=== PATIENT | female | born 1965 | race Caucasian/White ===

== ENCOUNTER 2017-03-18 07:10 | Outpatient (CLI) | payer OTHER ==
[2017-03-18 12:03] LABS: BASOPHILS % (AUTO) 0.5 %; EOSINOPHILS # (AUTO) 0.2 10^3/uL (0.0-0.7); EOSINOPHILS % (AUTO) 4.3 %; HCT - HEMATOCRIT 40.6 % (37.0-47.0); HGB - HEMOGLOBIN 13.8 g/dL (12.0-16.0); LYMPHOCYTES # (AUTO) 1.1 10^3/uL (1.5-3.5); LYMPHOCYTES % (AUTO) 22.7 %; MEAN CORPUSCULAR HEMOGLOBIN 29.2 pg (27.0-31.0); MEAN CORPUSCULAR HGB CONC 33.9 g/dL (32.0-36.0); MEAN CORPUSCULAR VOLUME 86.1 fL (81.0-99.0); MEAN PLATELET VOLUME 8.2 fL (7.9-10.8); MONOCYTES # (AUTO) 0.3 10^3/uL (0.0-1.0); MONOCYTES % (AUTO) 7.3 %; NEUTROPHILS # (AUTO) 3.1 10^3/uL (1.5-6.6); NEUTROPHILS % (AUTO) 65.2 %; RED BLOOD COUNT 4.72 10^6/uL (4.20-5.40); UNCORRECTED WHITE BLOOD COUNT 4.8 x10^3/uL; WHITE BLOOD COUNT 4.8 x10^3/uL (4.8-10.8)
[2017-03-18 12:42] LABS: ALBUMIN/GLOBULIN RATIO 1.3 (1.0-2.2); BILIRUBIN,TOTAL 0.7 mg/dL (0.2-1.0); BUN - BLOOD UREA NITROGEN 20 mg/dL (6-20); CALCIUM 9.5 mg/dL (8.5-10.3); CARBON DIOXIDE - CO2 29 mmol/L (21-32); CHLORIDE 103 mmol/L (101-111); CHOL/HDL RATIO 5.4 (<4.4); CHOLESTEROL 214 mg/dL; CREATININE 0.9 mg/dL (0.4-1.0); GFR - MDRD 66 (>89); GLUCOSE 111 mg/dL (70-100); HDL CHOLESTEROL 40 mg/dL; LDL/HDL RATIO 3.8 (<4.4); SODIUM 140 mmol/L (135-145); TOTAL PROTEIN 7.5 g/dL (6.7-8.2); TRIGLYCERIDES 122 mg/dL; VLDL CHOLESTEROL 24 mg/dL
== END 2017-03-18 07:11 | disposition home or self-care (01) ==
LOC: LAB.F 07:10
PROVIDERS: ATTEND Physician Assistant Medical
DX: Z00.00 Encounter for general adult medical examination without abnormal findings (principal)
CPT/HCPCS: 36415; 80053; 80061; 84443; 85025

== ENCOUNTER 2017-05-12 10:15 | Outpatient (CLI) | payer OTHER ==
--- NOTE | 2017-05-13 16:54 | Mammography Report ---
DIGITAL SCREENING MAMMOGRAM: 05/12/2017 CLINICAL INDICATION: A 51-year-old with history of late childbearing for screening. COMPARISON: Films from [place], [place] dated 02/13/2016, 02/06/2015, 02/03/2014, 11/26/2012, . TECHNIQUE: Routine CC and MLO projections were obtained of the breasts as well as bilateral laterall y exaggerated craniocaudal views. FINDINGS: Parenchymal tissue within both breasts is heterogeneously dense, which may lower the sensi tivity of mammography; however, there are no dominant masses, suspicious microcalcifications, or seco ndary signs of malignancy. In comparison to the previous studies, there are no significant changes. ASSESSMENT: NO MAMMOGRAPHIC EVIDENCE OF MALIGNANCY. NO SIGNIFICANT INTERVAL CHANGES. RECOMMENDATION: Screening mammography is recommended annually. BIRADS category 1 - negative. STANDARD QUALIFYING STATEMENTS 1. This examination was reviewed with the aid of Computed-Aided Detection (CAD). 2. A negative or benign imaging report should not delay biopsy if clinically suspicious findings are present. Consider surgical consultation if warranted. More than 5% of cancers are not identified by i maging. 3. Dense breasts may obscure an underlying neoplasm. JOB #: [id number] EXT JOB #:[id number]
== END 2017-05-12 10:16 | disposition home or self-care (01) ==
LOC: DI 10:15
PROVIDERS: ATTEND Physician Assistant Medical
DX: Z12.31 Encounter for screening mammogram for malignant neoplasm of breast (principal)
CPT/HCPCS: 77067

== ENCOUNTER 2018-05-05 16:03 | Emergency (ER) | payer OTHER ==
[2018-05-05 16:13] VITALS: BP 127/82
--- NOTE | 2018-05-05 16:56 | XRAY Report ---
Procedure Date: 05/05/2018 Accession Number: [id number] / [id number] Procedure: XR - Wrist 4 View LT CPT Code: FULL RESULT: EXAM: LEFT WRIST RADIOGRAPHY EXAM DATE: 05/05/2018 04:34 PM. CLINICAL HISTORY: Ground level fall onto left wrist, swelling and limited range of motion. COMPARISON: None. TECHNIQUE: 4 views. FINDINGS: Bones: Acute comminuted left distal radial fracture, intra-articular, with moderate dorsal angulation and displacement of a dorsal fracture fragment. Adjacent soft tissue swelling. Joints: No subluxation. IMPRESSION: Acute left distal radial fracture as above. RADIA
--- NOTE | 2018-05-05 17:14 | ED Physician Documentation ---
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 L wrist pain R handed no other injury Review of Systems Constitutional: denies: Fever Musculoskeletal: reports: Extremity pain PD PAST MEDICAL HISTORY - Past Medical History Past Medical History: No - Past Surgical History Past Surgical History: No - Present Medications Home Medications: Ambulatory Orders Medication Instructions Recorded Confirmed Ibuprofen [Motrin] 400 mg PO Q6H PRN #20 tablet 05/05/18 - Allergies Allergies/Adverse Reactions: Allergies Allergy/AdvReac Type Severity Reaction Status Date / Time No Known Drug Allergies Allergy Verified 05/05/18 16:13 - Social History Does the pt smoke?: No Smoking Status: Never smoker ETOH Use: Wine, Beer, Liquor Does the pt have substance abuse?: No PD ED PE NORMAL - Vitals Vital signs reviewed: Yes - Cardiac Cardiac: RRR - Respiratory Respiratory: No respiratory distress, Clear bilaterally - Extremities Extremities: Other (L wrist TTP radially and swelling but no gross deformity, and MSV intact) Results - Vitals Vitals: Vital Signs - 24 hr 05/05/18 16:11 Temperature 36.7 C Heart Rate 68 Respiratory 18 Rate Blood Pressure 127/82 H O2 Saturation 100 Oxygen O2 Source Room air - Rads (name of study) wrist Radiology: See rad report (acute L distal radius fx, intrarticular, slight apex volar angulation and slight dorsal displacement) Procedures - Splint (location) sugartong Splint applied by: Tech Type of splint: Fiberglass, Long arm, Sugar tong Other: Patient tolerated well, No complications, Neurovascular intact. No: Sling provided (offered and declined) PD MEDICAL DECISION MAKING - Sepsis Event Vital Signs: Vital Signs - 24 hr 05/05/18 16:11 Temperature 36.7 C Heart Rate 68 Respiratory 18 Rate Blood Pressure 127/82 H O2 Saturation 100 Oxygen O2 Source Room air Departure - Departure Disposition: 01 Home, Self Care Clinical Impression: Wrist fracture, left Qualifiers: Encounter type: initial encounter Fracture type: open Qualified Code(s): S62.102B - Fracture of unspecified carpal bone, left wrist, initial encounter for open fracture Condition: Good Instructions: ED Splint Care Fiberglass, ED Fx Wrist General Follow-Up: [facility] [Provider Group] Prescriptions: Ibuprofen [Motrin] 400 mg PO Q6H PRN #20 tablet PRN Reason: Pain Discharge Date/Time: 05/05/18 17:38
== END 2018-05-05 17:38 | disposition home or self-care (01) ==
LOC: ED 16:03
DX: S52.572B Other intraarticular fracture of lower end of left radius, initial encounter for open fracture type I or II (principal); W01.0XXA Fall on same level from slipping, tripping and stumbling without subsequent striking against object, initial encounter; Y93.H3 Activity, building and construction; Y92.71 Barn as the place of occurrence of the external cause
CPT/HCPCS: 29105; 99283

== ENCOUNTER 2018-05-14 13:58 | Outpatient (CLI) | payer OTHER ==
[2018-05-14 18:00] LABS: CALCIUM 9.4 mg/dL (8.5-10.3); CREATININE 0.9 mg/dL (0.4-1.0)
[2018-05-14 18:13] LABS: BASOPHILS % (AUTO) 0.5 %; EOSINOPHILS # (AUTO) 0.1 10^3/uL (0.0-0.7); EOSINOPHILS % (AUTO) 1.8 %; HGB - HEMOGLOBIN 13.7 g/dL (12.0-16.0); LYMPHOCYTES # (AUTO) 1.2 10^3/uL (1.5-3.5); MEAN CORPUSCULAR HEMOGLOBIN 30.5 pg (27.0-31.0); MEAN CORPUSCULAR HGB CONC 34.5 g/dL (32.0-36.0); MEAN CORPUSCULAR VOLUME 88.6 fL (81.0-99.0); MEAN PLATELET VOLUME 8.1 fL (7.9-10.8); MONOCYTES # (AUTO) 0.3 10^3/uL (0.0-1.0); MONOCYTES % (AUTO) 5.9 %; NEUTROPHILS # (AUTO) 3.9 10^3/uL (1.5-6.6); NEUTROPHILS % (AUTO) 70.8 %; PLT - PLATELET COUNT 266 10^3/uL (130-450); WHITE BLOOD COUNT 5.5 x10^3/uL (4.8-10.8)
== END 2018-05-14 13:59 | disposition home or self-care (01) ==
LOC: LAB.F 13:58
PROVIDERS: ATTEND Orthopaedic Surgery Sports Medicine
DX: Z01.812 Encounter for preprocedural laboratory examination (principal); S52.572A Other intraarticular fracture of lower end of left radius, initial encounter for closed fracture
CPT/HCPCS: 36415; 80048; 85025

== ENCOUNTER 2018-05-18 06:07 | Day surgery (SDC) | payer OTHER ==
[2018-05-18] MEDS ORDERED: ceFAZolin 2 GM/50 ML 2 GM/50 ML BAG IV ONE (06:28)
[2018-05-18] MEDS ORDERED: SCOPOLAMINE PATCH TOP ONE (06:51)
[2018-05-18] MEDS ORDERED: LACTATED RINGERS 1,000 ML IV ONE ×2 (07:06→10:15)
[2018-05-18] MEDS ORDERED: BUPIVACAINE 0.5% PF 30 ML VIAL ONE (07:18)
[2018-05-18] MEDS ORDERED: LIDOCAINE-MPF 2% 5 ML VIAL IM ONE (07:50)
[2018-05-18] MEDS ORDERED: PHENYLEPHRINE 50 MG/5 ML VIAL IV ONE (07:50)
[2018-05-18] MEDS ORDERED: MIDAZOLAM 2 MG/2 ML VIAL IVP ONE (07:50)
[2018-05-18] MEDS ORDERED: DEXAMETHASONE 4 MG/ML VIAL IVP ONE (07:50)
[2018-05-18] MEDS ORDERED: fentaNYL 100 MCG/2 ML VIAL IVP ONE (07:50)
[2018-05-18] MEDS ORDERED: ONDANSETRON 4 MG/2 ML VIAL IVP ONE (07:50)
[2018-05-18] MEDS ORDERED: KETOROLAC 30 MG/ML VIAL IVP ONE (07:50)
[2018-05-18] MEDS ORDERED: PROPOFOL 200 MG/20 ML VIAL IVP ONE (07:50)
[2018-05-18] MEDS ORDERED: BUPIVACAINE 0.5% PF 30 ML VIAL INFIL ONE ×2 (09:30)
[2018-05-18] MEDS ORDERED: ACETAMINOPHEN 1,000 MG/100 ML 100 ML IV ONE (09:57)
[2018-05-18] MEDS: HYDROmorphone 1 MG/ML CARPUJECT ONE ×2 (09:58→10:05)
[2018-05-18] MEDS: fentaNYL 100 MCG/2 ML VIAL ONE ×2 (10:20→10:45)
[2018-05-18] MEDS ORDERED: ONDANSETRON 4 MG/2 ML VIAL ONE (11:46)
[2018-05-18 13:55] VITALS: BP 118/65
--- NOTE | 2018-05-18 17:50 | OPERATIVE REPORT ---
DATE OF SERVICE: 05/18/2018 Physician: David Palomo MD SURGEON: David Palomo MD ELECTRO PLATER: None. ANESTHESIOLOGIST: Rogerio Thao CNA ANESTHESIA TYPE: General anesthesia as well as 10 mL of 0.5% plain Marcaine. FLUIDS: 700 mL lactated Ringer's. PREOPERATIVE ANTIBIOTICS: 2 gram weight-based IV Ancef. COMPRESSION DEVICE: Bilateral calf SCD boots. ESTIMATED BLOOD LOSS: Less than 50 mL. TOURNIQUET TIME: 95 minutes at 250 mmHg. ORTHOPEDIC IMPLANTS 1. Biomet Crosslock DVR plate, left side, regular. 2. Multiple 2.7 mm locking screws. 3. Single nonlocking 2.7 mm screw. INTRAOPERATIVE COMPLICATIONS: None noted. HISTORY OF PRESENT ILLNESS AND INDICATIONS: Patient i is a 52-year-old female who sustained a left intraarticular displaced distal radius fracture approximately 2 weeks ago. She was found to have an intra-articular widening with an ulnar column component and was indicated for operative treatment. Please see previous clinic dictation for further details. We previously reviewed risks, benefits and alternatives of operative and nonoperative treatment. She verbalized previously and again reiterated her wish to proceed with operative treatment for the left wrist. Informed consent was given. DESCRIPTION OF PROCEDURE: On 05/18/2018, patient was identified in the preoperative care unit. She identifies her left wrist as the operative site. This was signed by the operating surgeon. Patient received preoperative weight- based IV Ancef. She was brought to the operating room and placed supine on the operating table. Head, neck and extremities were placed in anatomically comfortable and safe position to avoid peripheral nerve stretch and compression. Patient was administered general anesthesia. Patient's left upper extremity had a well-padded tourniquet placed high on the left arm, but taking care to avoid encumbrance of the axilla. Patient's left upper extremity has splint removed and then the left upper extremity was prepped first, pre- scrubbed and then ultimately with chlorhexidine prepped and draped in the usual sterile fashion. At this point, surgical pause was performed and at this point , Esmarch bandage was used to exsanguinate the limb, and tourniquet was inflated. At this point, local anesthesia was administered around the planned incision site and then an incision was made over the left flexor carpi radialis taking care to go just through the skin and then angling across the distal wrist crease. This spreading dissection was carried out to the anterior aspect of the FCR sheath, which was gently incised and then extended proximally and distally. The FCR was then retracted ulnarly, protecting the median nerve and then the posterior sheath is incised. The soft tissues were brought gently ulnarly, taking care to avoid over exuberant retraction and to protect the median nerve. The pronator quadratus is identified and cleared off to the most distal aspect, taking care to avoid exuberant dissection distally to avoid injury to the wrist joint capsule and then at this point, the pronator quadratus is elevated off the most radial border of the radius directly on bone and then the distal aspect is elevated in 1 layer to preserve the muscle. At this point, the first dorsal extensor compartment was identified. The brachioradialis was identified and gently elevated off of the radial styloid while protecting the adjacent tendinous structures. This decreases deforming force on the distal fragment. At this point, the fracture has developed gently with a [place] elevator and the forearm was pronated to release the fracture. This was copiously irrigated and then reduction maneuver was performed to restore radial height, inclination, and volar tilt. Thumb pressure also helps reduce the dorsal ulnar fragments. The intraarticular split was noted to reduce. At this point, the appropriate size plate is selected and seated on the bone. It was precontoured and fits nicely. K-wires were placed to confirm that the plate is not too far distal and remains extraarticular and particular attention is paid to the DRUJ to avoid any penetration of that joint. Multiple iterations of this and fluoroscopic mini C-arm imaging was performed to confirm appropriate reduction and then the plate is K-wired in place. Ultimately, the oval hole screw was placed with a nonlocking screw. The plate is minimally adjusted and prior to tightening this oval screw, the 2 distal ulnar-sided locking screws are placed to help reduce and maintain reduction of the ulnar column of the distal radius. After this, then the oval hole was tightened to further the reduction. At this point, iterations of alternating fluoroscopy and screw placement is performed to confirm extraarticular screw placement, but also to avoid over exuberant penetration of the second cortex to protect the dorsal structures. The screws were placed. The DRUJ was noted to be clear of any hardware. The radiocarpal joint was noted to be clear of any hardware and all the screws were tightened. At this point, reduction and plate position are noted to be acceptable. At this point, the DRUJ was examined and noted to be stable in pronation and supination, as such additional DRUJ fixation or immobilization not indicated. No other evidence for carpal or intercarpal instability appreciated. At this point, the wound was copiously irrigated and then the pronator quadratus was then repaired distally and around the radial most corner. At this point, repeat copious irrigation was performed and then the skin was closed using layered closure including 0 Vicryl, 2-0 Vicryl, and then interrupted nylon suture. Copious irrigation was performed at every level. At this point, local anesthetic was infused superficially 10 mL around the skin incision. Xeroform dressing was applied after the skin was washed and dried. A 4 x 4 and then a clamshell-type splint short arm was placed in the neutral position. The patient tolerated the procedure well. Instrument and sponge counts were correct. The patient was transferred to the recovery room in stable condition after being extubated and having the LMA removed. There were no intraprocedural complications. The patient will follow standard postoperative left distal radius open reduction internal fixation protocol. She would be nonweightbearing on the left upper extremity. She will keep the splint clean, dry, and intact. She would be in the sling when she is up and about, though may remove the sling when she is at rest to move the elbow and digits. She would ice and elevate as directed. She was given perioperative medications including oxycodone for pain as well as Keflex for 24 hours. She will follow up in 10-14 days or sooner on an as- needed basis should problems, questions or worsening arise. All reviewed with her preoperatively. She previously verbalized understanding and agreement with satisfaction of the plan for postoperative care. ADDITIONAL PROCEDURE: Four views of the left distal radius mini C-arm fluoroscopic image interpretation. PROCEDURAL INDICATIONS: Intraoperative evaluation of distal radius fracture and hardware placement. FINDINGS: Radiographic findings demonstrate left distal radius fracture, intraarticular, with minimal dorsal ulnar column comminution. There is noted to be improved reduction of the joint surface with no gapping appreciated and acceptable hardware placement, which appears to be extraarticular, both of the DRUJ joint as well as the radiocarpal joint. No other definite fracture, dislocation or diastasis appreciated. Occult injury cannot be excluded. RADIOGRAPHIC IMPRESSION: Left distal radius fracture and fixation as above. TD: 05/18/2018 12:05 MTDD
== END 2018-05-18 06:08 | disposition home or self-care (01) ==
LOC: SDS 06:07
PROVIDERS: ATTEND Orthopaedic Surgery Sports Medicine
PROC: 0PSJ04Z Reposition Left Radius with Internal Fixation Device, Open Approach (ICD-10-PCS; principal; 2018-05-18 07:30)
DX: S52.572A Other intraarticular fracture of lower end of left radius, initial encounter for closed fracture (principal)
CPT/HCPCS: 25608; C1713; J0131; J0690; J1170; J3490; J7120

== ENCOUNTER 2018-09-15 11:41 | Outpatient (CLI) | payer OTHER ==
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
== END 2018-09-15 11:42 | disposition home or self-care (01) ==
LOC: DI 11:41
PROVIDERS: ATTEND Internal Medicine
DX: M25.511 Pain in right shoulder (principal); M25.512 Pain in left shoulder